=== PATIENT | male | born 1950 | race Caucasian/White ===

== ENCOUNTER 2017-07-03 08:17 | Day surgery (SDC) | payer MEDICARE, MEDICAID ==
[2017-07-03 09:22] LABS: GLUCOSE,POC 122 mg/dL (65-110)
[2017-07-03] MEDS ORDERED: Midazolam 2 MG/2 ML VIAL ONE (11:23)
[2017-07-03] MEDS ORDERED: Propofol 10 mg/ml Inj (20 ML) ONE (11:24)
[2017-07-03] MEDS: Ciprofloxacin 400mg/200ml D5W 400 MG/200 ML BAG IVPB ONE (11:25)
[2017-07-03] MEDS: Lidocaine 2% Jelly (Uro-Jet) ONE (12:10)
--- NOTE | 2017-07-03 12:36 | PCM.SURG1 ---
Surgeon's Initial Post Op Note - Surgeon's Notes Surgeon: trevor de anda Cane Flume Watcher: none Type of Anesthesia: General IV Anesthesia Administered By: adam Pre-Operative Diagnosis: bph elevated psa. Operative Findings: bph fibrosis anterior urethra. Post-Operative Diagnosis: bph. fibrosis anterior urethra. Operation Performed: cystoscopy.prostate ultrasound biopsies. Specimen/Specimens Removed: prostate tissue Estimated Blood Loss: EBL {In ML}: 5 Blood Products Given: N/A Drains Used: No Drains Post-Op Condition: Good Date of Surgery/Procedure: 07/03/17 Time of Surgery/Procedure: 12:38
[2017-07-03] MEDS ORDERED: HYDROmorphone 0.5 mg/0.5 ml ISec IVP PRN (13:09)
[2017-07-03 13:57] VITALS: TEMP 97.8
[2017-07-03 14:20] VITALS: BP 140/75; PULSE 62; RESP 16; O2SAT 99
--- NOTE | 2017-07-04 09:40 | RAD ---
PROCEDURE: HISTORY: As above COMPARISON: None TECHNIQUE: Total fluoroscopic time utilized during the procedure: 3.6 seconds ; 0.89459 mGy cm 2 FINDINGS: Submitted images from the current procedure: 3 Please refer to the physician's notes performing the procedure. IMPRESSION: Less than 1 hour fluoroscopic time utilized during performance of the procedure
--- NOTE | 2017-07-05 03:00 | OP ---
PROCEDURE DATE: 07/03/2017 PREOPERATIVE DIAGNOSES: Benign prostatic hypertrophy and elevated prostate specific antigen. POSTOPERATIVE DIAGNOSES: Benign prostatic hypertrophy, fibrosis of the anterior urethra. OPERATION: Cystoscopy and prostate ultrasound biopsy. SURGEON: Sukhjinder Cazares MD GROSS FINDINGS: Good bladder capacity. No tumors or stone were observed during emptying and filling of the bladder. Bladder patent, no trabeculations. Ureteral orifices normally placed and in configuration, enlarged lateral lobes of the prostate gland which showed prostatic urethra. Fibrosis of the anterior urethra noted. TECHNIQUE: This patient was placed in lithotomy position. The external genitalia was prepped and draped in the usual sterile fashion. A #17 panendoscope was used to do the cystoscopy. We had some difficulties entering the urethra because of the fibrosis of the urethra. Then, a #35 guidewire was passed into the bladder. Along this guidewire, the #18 cystoscope was introduced into the bladder following the guidewire. Findings as above. The cystoscopy was terminated. A #20 [place] catheter was passed into the bladder over the wire with some difficulties. After this was accomplished, using a rectal ultrasound probe which was placed into the patient's rectum. The prostate gland was inspected transversally and sagittally. Then in the sagittal mode, at 12 megahertz, two passes were made at the right lateral lobe and 6 passes were made at the left lateral lobe with a biopsy needle. After this was accomplished, digital prostrate biopsy #6 was made at the right lateral lobe. Minimal bleeding was present during the procedure. Digital pressure was applied to the prostrate capsule to avoid bleeding. Also, the rectum was irrigated with normal saline. The patient withstood the procedure well and returned to recovery room in satisfactory condition. Sukhjinder Cazares MD
== END 2017-07-03 14:23 | disposition home or self-care (01) ==
LOC: C.SDS 08:17
PROVIDERS: ATTEND Urology
DX: N40.0 Benign prostatic hyperplasia without lower urinary tract symptoms (principal); R97.20 Elevated prostate specific antigen [PSA]; E11.9 Type 2 diabetes mellitus without complications

== ENCOUNTER 2018-03-21 09:38 | Day surgery (SDC) | payer MEDICARE, MEDICAID ==
[2018-03-21] MEDS ORDERED: Ciprofloxacin 400mg/200ml D5W 400 MG/200 ML BAG IVPB ONE (11:20)
[2018-03-21] MEDS ORDERED: ceFAZolin 1 gm FROZEN Premix 1 GM/50 ML ML IVPB ONE (11:21)
[2018-03-21] MEDS ORDERED: Propofol 10 mg/ml Inj (20 ML) ONE ×3 (11:38→12:11)
[2018-03-21] MEDS ORDERED: Etomidate 20 mg/10ml Inj IV ONE ×3 (11:38→12:23)
[2018-03-21] MEDS ORDERED: ePHEDrine 50 mg/ml Inj ONE (11:54)
[2018-03-21] MEDS ORDERED: Lidocaine 2% Jelly (Uro-Jet) ONE ×3 (12:00→12:55)
[2018-03-21] MEDS ORDERED: Phenylephrine 10 mg/ml Inj ONE (12:15)
--- NOTE | 2018-03-21 12:37 | PCM.SURG1 ---
Surgeon's Initial Post Op Note - Surgeon's Notes Surgeon: ivelisse Blasting Machine Operator: none Type of Anesthesia: IV Sedation Anesthesia Administered By: Pre-Operative Diagnosis: ca prostate. urethral stricture Operative Findings: enlarged prostate. bulbous urethral stricture. Post-Operative Diagnosis: enlarged prostate urethral stricture Operation Performed: cystoscopy urethral dilatation Specimen/Specimens Removed: none Estimated Blood Loss: EBL {In ML}: 1 Blood Products Given: N/A Drains Used: No Drains Post-Op Condition: Good Date of Surgery/Procedure: 03/21/18 Time of Surgery/Procedure: 12:39
[2018-03-21] MEDS: HYDROmorphone 0.5 mg/0.5 ml ISec IVP PRN ×2 (12:57→13:15)
[2018-03-21] MEDS ORDERED: Lactated Ringer's 1,000 ML IV ONE (13:15)
[2018-03-21 13:29] VITALS: O2SAT 100
[2018-03-21 13:46] VITALS: BP 130/70; PULSE 70; RESP 18; TEMP 98
--- NOTE | 2018-03-22 02:30 | OP ---
PROCEDURE DATE: 03/21/2018 PREOPERATIVE DIAGNOSES: Adenocarcinoma of the prostate gland, urinary retention, and urethral stricture. POSTOPERATIVE DIAGNOSES: Adenocarcinoma of the prostate gland, urethral stricture bulbous, and large prostate gland. OPERATIONS: Cystoscopy, urethral dilatation, and bladder catheterization. GROSS FINDINGS: Good bladder capacity, moderate trabeculation. No tumors or stones were observed in the bladder. Inflammation of the posterior bladder wall is noted. Urethral orifices were normal, and large prostate gland showed prostatic urethra, bulbous urethral stricture, calibrates #14 [place]. DESCRIPTION OF PROCEDURE: This patient was placed in the lithotomy position. The external genitalia was prepped and draped in the usual sterile fashion. A #17 panendoscope was introduced in the bladder with some difficulties because of the stricture area. Finding as above. The urethra was dilated to #24 with moderate difficulties. All passage of urethra was present, and guidewire was passed into the bladder, and over the guidewire, #24 [place] catheter was passed into the bladder with some difficulties. The bladder was irrigated. No bleeding was present, and the catheter was placed on gravity drainage. The patient withstood the procedure well and returned to recovery room in satisfactory condition. Sukhjinder Cazares MD
== END 2018-03-21 14:22 | disposition home or self-care (01) ==
LOC: C.SDS 09:38
PROVIDERS: ATTEND Urology
DX: R31.0 Gross hematuria (principal); R97.20 Elevated prostate specific antigen [PSA]; C61 Malignant neoplasm of prostate; N35.919 Unspecified urethral stricture, male, unspecified site
CPT/HCPCS: 52281; 82948; J0690; J0744; J1170; J2001; J2370; J2405; J2704; J3010; J7120